=== PATIENT | female | born 1965 | race American Indian/Alaskan Native ===

== ENCOUNTER 2017-03-30 18:06 | Emergency (ER) | payer OTHER ==
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
[2017-03-30] MEDS ORDERED: MVI, Adult with Vitamin K 10 ML SDV IV ONE (18:35)
[2017-03-30] MEDS ORDERED: Lactated Ringers 1,000 ML IV ONE (18:35)
[2017-03-30] MEDS ORDERED: Thiamine 100 MG in Sodium Chloride 0.9% 100 ML IV ONE (18:35)
[2017-03-30] MEDS ORDERED: MVI, Adult with Vitamin K 10 ML, Thiamine 100 MG, Folic Acid 1 MG in Lactated Ringers 1... IV ONE ×4 (18:56)
[2017-03-30 20:39] LABS: CHLORIDE,CL 95 mmol/L (101-111); SODIUM,NA 135 mmol/L (135-145)
[2017-03-30] MEDS ORDERED: Ondansetron 4 MG/2 ML SDV IV ONE (20:45)
[2017-03-30 22:01] VITALS: BP 135/90
[2017-03-31] MEDS ORDERED: Folic Acid 50 MG/10 ML MDV IV ONE (18:37)
== END 2017-03-30 21:52 | disposition home or self-care (01) ==
LOC: DL.ED 18:06
DX: F10.129 Alcohol abuse with intoxication, unspecified (principal); Y90.8 Blood alcohol level of 240 mg/100 ml or more; F17.210 Nicotine dependence, cigarettes, uncomplicated; E11.9 Type 2 diabetes mellitus without complications; Z89.412 Acquired absence of left great toe; Z88.8 Allergy status to other drugs, medicaments and biological substances; Z88.1 Allergy status to other antibiotic agents; V89.2XXA Person injured in unspecified motor-vehicle accident, traffic, initial encounter
CPT/HCPCS: 36415; 80053; 80305; 81025; 82962; 85025; 96365; 96366; 96375; 99284; G0480; J2405; J3411; J7120; J3490

== ENCOUNTER 2020-07-31 17:00 | Emergency (ER) | payer OTHER ==
--- NOTE | 2020-07-31 17:25 | CT ---
PROCEDURE INFORMATION: Exam: CT Head Without Contrast Exam date and time: 07/31/2020 5:13 PM Age: 55 years old Clinical indication: Other: Left sided weakness; Additional info: Numbness and tingling left side TECHNIQUE: Imaging protocol: Computed tomography of the head without contrast. Radiation optimization: All CT scans at this facility use at least one of these dose optimization techniques: automated exposure control; mA and/or kV adjustment per patient size (includes targeted exams where dose is matched to clinical indication); or iterative reconstruction. Other technique: STROKE PROTOCOL was implemented. COMPARISON: No relevant prior studies available. FINDINGS: Brain: Old infarct right basal ganglia and anterior limb right internal capsule. Diffuse cerebellar atrophy. Cerebral ventricles: No ventriculomegaly. Bones/joints: Unremarkable. No acute fracture. Paranasal sinuses: Visualized sinuses are unremarkable. No fluid levels. Mastoid air cells: Visualized mastoid air cells are well aerated. Soft tissues: Unremarkable. IMPRESSION: 1. 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 2. Diffuse cerebellar atrophy 3. No acute intracranial findings. ASSESSMENT: ASPECTS ([place] Stroke Program Early CT Score) is 10.
[2020-07-31 17:27] VITALS: BP 213/111; PULSE 76
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
[2020-07-31 18:52] LABS: ANION GAP 11.4 mEq/L (7-13)
== END 2020-07-31 20:15 | disposition home or self-care (01) ==
LOC: DL.ED 17:00
DX: E11.40 Type 2 diabetes mellitus with diabetic neuropathy, unspecified (principal); Z87.891 Personal history of nicotine dependence; Z88.1 Allergy status to other antibiotic agents; Z79.4 Long term (current) use of insulin
CPT/HCPCS: 36415; 70450; 80053; 81001; 82140; 82150; 83690; 85025; 99283; 99284-25

== ENCOUNTER 2020-12-23 16:41 | Emergency (ER) | payer OTHER ==
[2020-12-23 17:32] LABS: PTT,PARTIAL THROMBOPLSTIN TIME 24.5 SEC (22.0-34.0)
[2020-12-23 17:35] LABS: ANION GAP 16.9 mEq/L (7-13); CHLORIDE,CL 107 mmol/L (98-107); SODIUM,NA 139 mmol/L (136-145)
--- NOTE | 2020-12-23 17:36 | CT ---
PROCEDURE INFORMATION: Exam: CT Head Without Contrast Exam date and time: 12/23/2020 5:25 PM Age: 55 years old Clinical indication: Other: Stroke code: Right face droop, RT sided weakness TECHNIQUE: Imaging protocol: Computed tomography of the head without contrast. Radiation optimization: All CT scans at this facility use at least one of these dose optimization techniques: automated exposure control; mA and/or kV adjustment per patient size (includes targeted exams where dose is matched to clinical indication); or iterative reconstruction. Other technique: STROKE PROTOCOL was implemented. COMPARISON: CT Head wo Cont 07/31/2020 5:13 PM FINDINGS: Brain: Lucency in left cerebellar hemisphere and in left occipital lobe, consistent with chronic infarcts. Chronic bilateral basal ganglia infarcts. Cerebral ventricles: No ventriculomegaly. Bones/joints: On series 2, image 16, there is a 8 mm in diameter lucency of the left basal ganglion not present previously which is most consistent with an additional lacunar infarct having taken place in the interval since July 31, 2020. Paranasal sinuses: Visualized sinuses are unremarkable. No fluid levels. Mastoid air cells: Visualized mastoid air cells are well aerated. Soft tissues: Unremarkable. IMPRESSION: 1. Negative head CT. 2. Lucency in left cerebellar hemisphere and in left occipital lobe, consistent with chronic infarcts. 3. Chronic bilateral basal ganglia infarcts. 4. Additional left basal ganglion infarct which appears to be not acute, which was not present on July 31, 2020. 5. [place] Stroke Program Early CT Score (ASPECTS) = 10.
[2020-12-23] MEDS ORDERED: Sodium Chloride 0.9% 1,000 ML IV ONE (17:43)
--- NOTE | 2020-12-23 17:46 | CR ---
PROCEDURE INFORMATION: Exam: XR Chest Exam date and time: 12/23/2020 5:31 PM Age: 55 years old Clinical indication: Other: ? CVA possible aspiration; Additional info: CVA, poss. Aspiration TECHNIQUE: Imaging protocol: XR of the chest. Views: 1 view. COMPARISON: No relevant prior studies available. FINDINGS: Lungs: No suspicious pulmonary nodules or areas of lung consolidation. Pleural spaces: Unremarkable. No pleural effusion. No pneumothorax. Heart/Mediastinum: Unremarkable. No cardiomegaly. Bones/joints: Age appropriate. IMPRESSION: No active disease of the chest.
[2020-12-23 18:06] VITALS: BP 201/97; PULSE 80
--- NOTE | 2020-12-23 18:09 | EDM.PDOC ---
"Scribed by Macy Anna 12/23/20 1738 for Kaylin Mohr MD ED HPI GENERAL MEDICAL PROBLEM - General Chief Complaint: Neuro Symptoms/Deficits Stated Complaint: STROKE LIKE SYMPTOMS Time Seen by Provider: 12/23/20 16:53 Source of Information: Reports: Patient, RN, RN Notes Reviewed History Limitations: Reports: No Limitations - History of Present Illness INITIAL COMMENTS - FREE TEXT/NARRATIVE: Patient presents to ED by POV stating that her last known well was at 2200HRS last evening. Patient woke with right sided facial droop, slurred speech, right sided upper and lower extremity weakness. For some unknown reason, she waited until this evening to come to the ER for evaluation. She denies headache or visual changes. Speech is very slurred and difficult to understand. She does indicate that she has no prior history of CVA. Onset: Today Duration: Constant Severity: Severe Improves with: Reports: None Worsens with: Reports: None Associated Symptoms: Reports: No Other Symptoms - Related Data Allergies Allergy/AdvReac Type Severity Reaction Status Date / Time ceftriaxone sodium Allergy Shaking Verified 07/31/20 17:45 [From Rocephin] Home Meds: Home Meds Aspirin [Aspirin EC] 81 mg PO DAILY 07/31/20 [History] Chlorthalidone 25 mg PO DAILY 07/31/20 [History] Insulin Detemir [Levemir] 10 units SQ BEDTIME 07/31/20 [History] Mupirocin Oint [Bactroban Oint] 22 gm TP TID 07/31/20 [History] Past Medical History - Past Health History Medical/Surgical History: Denies Medical/Surgical History HEENT History: Reports: Impaired Vision, Other (See Below) Other HEENT History: wears glasses, rhinitis Cardiovascular History: Reports: Hypertension Respiratory History: Reports: None Gastrointestinal History: Reports: Other (See Below) Other Gastrointestinal History: nephortic syndrome Genitourinary History: Reports: None 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 SUPERVISOR History: Reports: None Musculoskeletal History: Reports: Fracture Neurological History: Reports: None Psychiatric History: Reports: None Endocrine/Metabolic History: Reports: Diabetes, Type II, Hypothyroidism Hematologic History: Reports: None Immunologic History: Reports: None Oncologic (Cancer) History: Reports: None Dermatologic History: Reports: None - Infectious Disease History Infectious Disease History: Reports: Chicken Pox - Past Surgical History Head Surgeries/Procedures: Reports: None Female Surgical History: Reports: Section Other Musculoskeletal Surgeries/Procedures:: 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 ED EXAM, NEURO - Physical Exam Exam: See Below Exam Limited By: Physical Impairment General Appearance: Alert, WD/WN, No Apparent Distress Eye Exam: Right Eye: Other (Right eyelid weakness), Bilateral Eye: EOMI, PERRL Ears: Normal External Exam, Normal Canal, Hearing Grossly Normal, Normal TMs Nose: Normal Inspection, Normal Mucosa, No Blood Throat/Mouth: Normal Lips, Normal Voice, No Airway Compromise Head Exam: Atraumatic, Normocephalic Neck: Normal Inspection, Supple, Non-Tender, Full Range of Motion. No: Carotid Bruit Respiratory/Chest: No Respiratory Distress, Lungs Clear, No Accessory Muscle Use, Chest Non-Tender, Decreased Breath Sounds Cardiovascular: Regular Rate, Rhythm, No Edema, No JVD GI/Abdominal: Normal Bowel Sounds, Soft, Non-Tender, No Distention Neurological: Alert, Normal Dorsiflexion, Normal Plantar Flexion, Oriented x 3, Abnormal Motor (NIH score 7-8 by my exam. NIH reports as 10 by RN.), Difficulty Walking, Other (Slurred speech with dysarthria, right facial droop involving forehead, tongue weakness to right. Right upper and lower extremity weakness with mild drift. 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 - Orders/Labs/Meds Orders: Active Orders 24 hr Category Date Time Status Blood Glucose Check, Bedside [RC] ONETIME Care 12/23/20 16:53 Active EKG 12 Lead [EKG Documentation Completion] [RC] STAT Care 12/23/20 16:58 Active NIH Stroke Scale [RC] ASDIRECTED Care 12/23/20 16:54 Active AMMONIA VENOUS [CHEM] Stat Lab 12/23/20 17:44 Ordered DRUG SCREEN URINE BIORAD [URCHEM] Stat Lab 12/23/20 16:57 Ordered UA RFX LUCIEN AND CULT IF INDIC [URIN] Stat Lab 12/23/20 16:59 Ordered Sodium Chloride 0.9% [Normal Saline] 1,000 ml Med 12/23/20 17:43 Active IV .BOLUS Medication Orders Sodium Chloride (Normal Saline) 1,000 mls @ 999 mls/hr IV .BOLUS ONE Stop: 12/23/20 18:43 Labs: Laboratory Tests 12/23/20 12/23/20 12/23/20 Range/Units 17:08 17:08 17:08 WBC 9.6 (5.0-10.0) 10^3/uL RBC 3.55 L (4.2-5.4) 10^6/uL Hgb 10.6 L (12.0-16.0) g/dL Hct 33.2 L (37.0-47.0) % MCV 93.5 (80-100) fL MCH 29.9 (27.0-34.0) pg MCHC 31.9 L (33.0-35.0) g/dL Plt Count 342 (150-450) 10^3/uL Neut % (Auto) 72.0 (42.2-75.2) % Lymph % (Auto) 20.6 (20.5-50.1) % [place] % (Auto) 4.9 (2-8) % Eos % (Auto) 2.1 (1.0-3.0) % Baso % (Auto) 0.4 (0.0-1.0) % PT 9.5 (9.0-12.0) SEC INR 0.9 (0.9-1.2) APTT 24.5 (22.0-34.0) SEC Sodium 139 (136-145) mmol/L Potassium 4.9 (3.5-5.1) mmol/L Chloride 107 (98-107) mmol/L Carbon Dioxide 20 L (21-32) mmol/L Anion Gap 16.9 H (7-13) mEq/L BUN 55 H (7-18) mg/dL Creatinine 4.04 H (0.55-1.02) mg/dL Est Cr Clr Drug Dosing TNP Estimated GFR (MDRD) 12 BUN/Creatinine Ratio 13.6 (No establ ref range) Glucose 130 H (70-99) mg/dL Calcium 8.1 L (8.5-10.1) mg/dL Total Bilirubin 0.2 (0.2-1.0) mg/dL AST 14 L (15-37) U/L ALT 21 (14-59) U/L Alkaline Phosphatase 104 (46-116) U/L Troponin I < 0.017 (0.000-0.056) ng/mL C-Reactive Protein < 0.2 (0.0-0.9) mg/dL Total Protein 6.4 (6.4-8.2) g/dL Albumin 2.1 L (3.4-5.0) g/dL Globulin 4.3 Albumin/Globulin Ratio 0.49 Ethyl Alcohol < 3 (0) mg/dL Meds: Medications Generic Name Dose Route Start Last Admin Trade Name Freq PRN Reason Stop Dose Admin Sodium Chloride 1,000 mls @ 999 mls/hr 12/23/20 17:43 Normal Saline IV 12/23/20 18:43 .BOLUS ONE - Radiology Interpretation Free Text/Narrative:: [facility] Final Radiology Report Call: [phone] assistance Online chat: [email or web address] Name: AWAIS DUMONT Age: 55Years F Date: 12/23/2020 SSN: -- : [id number] Study: CT HEAD WO CONT Requesting Physician: KAYLIN MOHR Images: 179 Addl Studies: Provided Clinical History: STROKE CODE: right face droop, Rt sided weakness Contrast: Without Contrast Medium: Contrast Amount: Contrast Method: Page 1 of 2 PROCEDURE INFORMATION: Exam: CT Head Without Contrast Exam date and time: 12/23/2020 5:25 PM Age: 55 years old Clinical indication: Other: Stroke code: Right face droop, RT sided weakness TECHNIQUE: Imaging protocol: Computed tomography of the head without contrast. Radiation optimization: All CT scans at this facility use at least one of these dose optimization techniques: automated exposure control; mA and/or kV adjustment per patient size (includes targeted exams where dose is matched to clinical indication); or iterative reconstruction. Other technique: STROKE PROTOCOL was implemented. COMPARISON: CT Head wo Cont 07/31/2020 5:13 PM FINDINGS: Brain: Lucency in left cerebellar hemisphere and in left occipital lobe, consistent with chronic infarcts. Chronic bilateral basal ganglia infarcts. Cerebral ventricles: No ventriculomegaly. Bones/joints: On series 2, image 16, there is a 8 mm in diameter lucency of the left basal ganglion not present previously which is most consistent with an additional lacunar infarct having taken place in the interval since July 31, 2020. Paranasal sinuses: Visualized sinuses are unremarkable. No fluid levels. Mastoid air cells: Visualized mastoid air cells are well aerated. Soft tissues: Unremarkable. IMPRESSION: 1. Negative head CT. 2. Lucency in left cerebellar hemisphere and in left occipital lobe, consistent with chronic infarcts. 3. Chronic bilateral basal ganglia infarcts. AWAIS DUMONT | Final Radiology Report CONFIDENTIALITY STATEMENT This report is intended only for use by the referring physician, and only in accordance with law. If you received this in error, call [phone]. Page 2 of 2 4. Additional left basal ganglion infarct which appears to be not acute, which was not present on July 31, 2020. 5. [facility] Stroke Program Early CT Score (ASPECTS) = 10. Thank you for allowing us to participate in the care of your patient. Dictated and Authenticated by: Huang Davidson MD 12/23/2020 5:35 PM Central Time ([place] & [place]) [facility] Final Radiology Report Call: [phone] assistance Online chat: [email or web address] Name: AWAIS DUMONT Age: 55Years F Date: 12/23/2020 SSN: -- : [id number] Study: CR CHEST 1V FRONTAL Requesting Physician: KAYLIN MOHR Images: 1 Addl Studies: Provided Clinical History: CVA, poss. aspiration Contrast: Contrast Medium: Contrast Amount: Contrast Method: CONFIDENTIALITY STATEMENT This report is intended only for use by the referring physician, and only in accordance with law. If you received this in error, call [phone]. Page 1 of 1 PROCEDURE INFORMATION: Exam: XR Chest Exam date and time: 12/23/2020 5:31 PM Age: 55 years old Clinical indication: Other: ? CVA possible aspiration; Additional info: CVA, poss. Aspiration TECHNIQUE: Imaging protocol: XR of the chest. Views: 1 view. COMPARISON: No relevant prior studies available. FINDINGS: Lungs: No suspicious pulmonary nodules or areas of lung consolidation. Pleural spaces: Unremarkable. No pleural effusion. No pneumothorax. Heart/Mediastinum: Unremarkable. No cardiomegaly. Bones/joints: Age appropriate. IMPRESSION: No active disease of the chest. Thank you for allowing us to participate in the care of your patient. Dictated and Authenticated by: Huang Davidson MD 12/23/2020 5:46 PM Central Time ([place] & [place]) - Re-Assessments/Exams Free Text/Narrative Re-Assessment/Exam: 12/23/20 18:[address] Martinez (neurology) via [facility] Call. Dr. Martinez advised the pt may be best cared for a [facility] where interventional neurology is available as pt is well outside of thrombolytic window. Departure - Departure Time of Disposition: 17:59 Disposition: DC/Tfer to Acute Hospital 02 Condition: Serious Clinical Impression: Acute CVA (cerebrovascular accident), Acute kidney injury - Discharge Information *PRESCRIPTION DRUG MONITORING PROGRAM REVIEWED*: Not Applicable *COPY OF PRESCRIPTION DRUG MONITORING REPORT IN PATIENT ANTHONY: Not Applicable Forms: ED Department Discharge, Interfacility Transfer EMTALA - My Orders Last 24 Hours: My Active Orders 12/23/20 16:53 Blood Glucose Check, Bedside [RC] ONETIME 12/23/20 16:54 NIH Stroke Scale [RC] ASDIRECTED 12/23/20 16:57 DRUG SCREEN URINE BIORAD [URCHEM] Stat 12/23/20 16:58 EKG 12 Lead [EKG Documentation Completion] [RC] STAT 12/23/20 16:59 UA RFX LUCIEN AND CULT IF INDIC [URIN] Stat 12/23/20 17:43 Sodium Chloride 0.9% [Normal Saline] 1,000 ml IV .BOLUS 12/23/20 17:44 AMMONIA VENOUS [CHEM] Stat - Assessment/Plan Last 24 Hours: My Active Orders 12/23/20 16:53 Blood Glucose Check, Bedside [] ONETIME 12/23/20 16:54 NIH Stroke Scale [] ASDIRECTED 12/23/20 16:57 DRUG SCREEN URINE BIORAD [URCHEM] Stat 12/23/20 16:58 EKG 12 Lead [EKG Documentation Completion] [RC] STAT 12/23/20 16:59 UA RFX LUCIEN AND CULT IF INDIC [URIN] Stat 12/23/20 17:43 Sodium Chloride 0.9% [Normal Saline] 1,000 ml IV .BOLUS 12/23/20 17:44 AMMONIA VENOUS [CHEM] Stat I have read and agree with the documentation that has been completed regarding this visit. By signing this record, I attest that the documentation was completed in my physical presence and is an accurate record of the encounter."
== END 2020-12-23 18:27 ==
LOC: DL.ED 16:41
DX: I63.9 Cerebral infarction, unspecified (principal); N17.9 Acute kidney failure, unspecified; I10 Essential (primary) hypertension; E11.9 Type 2 diabetes mellitus without complications; E03.9 Hypothyroidism, unspecified; Z88.1 Allergy status to other antibiotic agents; Z79.82 Long term (current) use of aspirin; Z79.4 Long term (current) use of insulin
CPT/HCPCS: 36415; 70450; 71045; 80053; 80307; 82140; 82962; 84484; 85025; 85610; 85730; 86140; 93005; 93010; 99285; J7030

== ENCOUNTER 2022-08-31 12:01 | Inpatient (IN) | payer BC ==
[2022-08-31 12:24] LABS: ANION GAP 27.6 mEq/L (7-13)
[2022-08-31] MEDS ORDERED: Pantoprazole 40 MG Vial IVPUSH ONE (16:21)
[2022-08-31] MEDS: Pantoprazole 40 MG in Sodium Chloride 0.9% 100 ML IV SCH ×2 (17:25→22:20)
[2022-08-31] MEDS ORDERED: Sodium Bicarbonate 100 MEQ in Dextrose 5% in Water 1,000 ML IV ONE ×2 (19:25)
[2022-08-31] MEDS ORDERED: DESMOPRESSIN IV ONE (19:26)
[2022-08-31] MEDS ORDERED: SODIUM CHLORIDE 0.9% IV ONE (19:26)
[2022-08-31] MEDS ORDERED: Lactated Ringers 1,000 ML IV SCH (19:30)
[2022-08-31] MEDS ORDERED: Water For Injection, Sterile 10 ML ONE (20:04)
[2022-08-31] MEDS ORDERED: Magnesium Hydroxide 400 MG/5 ML Susp 30 ML Cup PO PRN (20:35)
[2022-08-31] MEDS ORDERED: Acetaminophen 325 MG Tab PO PRN (20:35)
[2022-08-31] MEDS ORDERED: Albuterol/Ipratropium 3.0-0.5 MG/3 ML Neb Soln NEB PRN (20:35)
[2022-08-31] MEDS ORDERED: Ondansetron 4 MG/2 ML SDV IVPUSH PRN (20:35)
[2022-08-31] MEDS ORDERED: HYDROmorphone 0.5 MG/0.5 ML Syringe IVPUSH PRN (20:35)
[2022-08-31] MEDS ORDERED: Polyethylene Glycol 3350 Powder 17 GM Packet PO PRN (20:35)
[2022-08-31] MEDS ORDERED: Sodium Chloride 0.9% 10 ML Syringe FLUSH PRN (20:51)
[2022-08-31] MEDS ORDERED: Metoprolol Tartrate 5 MG/5 ML SDV IVPUSH PRN (21:33)
[2022-08-31] MEDS ORDERED: hydrALAZINE 20 MG/ML SDV IVPUSH PRN (21:33)
[2022-08-31] MEDS ORDERED: atorvaSTATin 20 MG Tab PO SCH (21:45)
[2022-08-31] MEDS ORDERED: Sucralfate Suspension 1 GM/10 ML Cup PO ONE (22:08)
[2022-08-31] MEDS: Sodium Chloride 0.9% 10 ML Syringe FLUSH SCH (22:21)
[2022-09-01] MEDS ORDERED: Sucralfate Suspension 1 GM/10 ML Cup PO SCH (07:00)
[2022-09-01] MEDS: Pantoprazole 40 MG in Sodium Chloride 0.9% 100 ML IV SCH (07:35)
[2022-09-01] MEDS ORDERED: NITAZOXANIDE 500 MG PO SCH (08:00)
[2022-09-01] MEDS ORDERED: Non-Formulary Medication 1 Each (Sevelamer Carbonate [Renvela] 800 MG Tablet) PO SCH (08:00)
[2022-09-01] MEDS: Sodium Chloride 0.9% 10 ML Syringe FLUSH SCH (08:15)
[2022-09-01] MEDS ORDERED: SODIUM CHLORIDE 0.9% IV ONE (09:00)
[2022-09-01] MEDS ORDERED: DESMOPRESSIN IV ONE (09:00)
[2022-09-01] MEDS ORDERED: amLODIPine 5 MG Tab PO SCH (09:00)
== END 2022-09-01 09:04 | DRG 469 ==
LOC: DL.ED 12:01 → DL.MS 17:51 → DL.ED 18:19
PROVIDERS: ADMIT Internal Medicine; ATTEND Internal Medicine
PROC: 30233N1 Transfusion of Nonautologous Red Blood Cells into Peripheral Vein, Percutaneous Approach (ICD-10-PCS; principal; 2022-08-31)
DX: D59.30 Hemolytic-uremic syndrome, unspecified (principal); G93.49 Other encephalopathy; E11.65 Type 2 diabetes mellitus with hyperglycemia; E87.5 Hyperkalemia; E87.20 Acidosis, unspecified; N18.6 End stage renal disease; E11.22 Type 2 diabetes mellitus with diabetic chronic kidney disease; E88.09 Other disorders of plasma-protein metabolism, not elsewhere classified; H54.7 Unspecified visual loss; E03.9 Hypothyroidism, unspecified; I12.0 Hypertensive chronic kidney disease with stage 5 chronic kidney disease or end stage renal disease; Z99.2 Dependence on renal dialysis; Z79.82 Long term (current) use of aspirin; Z79.899 Other long term (current) drug therapy; Z88.1 Allergy status to other antibiotic agents
CPT/HCPCS: 36415; 36430; 80053; 80069; 82272; 82607; 82746; 83540; 83550; 83735; 84484; 85014; 85018; 85025; 86850; 86900; 86901; 86920; 86922; 93005; 96365; 96376; 99285-25; A9270-GY; C9113; J1410; J2597; J3490; J7060; J7120; P9016

== ENCOUNTER 2022-11-12 13:51 | Emergency (ER) | payer BC ==
[2022-11-12 14:49] LABS: ANION GAP 9.8 mEq/L (7-13); CHLORIDE,CL 102 mmol/L (98-107); SODIUM,NA 141 mmol/L (136-145)
[2022-11-12 14:51] LABS: ESTIMATED GFR 19 mL/min (>=60)
[2022-11-12] MEDS ORDERED: Tranexamic Acid 1,000 MG in Sodium Chloride 0.9% 100 ML IV ONE (14:59)
[2022-11-12] MEDS ORDERED: Pantoprazole 40 MG Vial IVPUSH ONE (15:00)
[2022-11-12] MEDS ORDERED: Pantoprazole 40 MG in Sodium Chloride 0.9% 100 ML IV SCH (15:00)
[2022-11-12] MEDS ORDERED: Octreotide 100 MCG/ML SDV IVPUSH ONE (15:01)
[2022-11-12] MEDS ORDERED: Octreotide 100 MCG in Sodium Chloride 0.9% 100 ML IV ONE (15:01)
[2022-11-12] MEDS: Sodium Chloride 0.9% 10 ML Syringe FLUSH PRN ×2 (15:09→15:29)
== END 2022-11-12 16:30 ==
LOC: DL.ED 13:51
DX: K92.2 Gastrointestinal hemorrhage, unspecified (principal); I10 Essential (primary) hypertension; E11.9 Type 2 diabetes mellitus without complications; Z88.1 Allergy status to other antibiotic agents; Z79.82 Long term (current) use of aspirin; Z79.02 Long term (current) use of antithrombotics/antiplatelets; Z79.899 Other long term (current) drug therapy
CPT/HCPCS: 36415; 36430; 80053; 82272; 83605; 85025; 85610; 86140; 86850; 86900; 86901; 86920; 86922; 93005; 93010; 96365; 96368; 96375; 96376; 99284; 99285; C9113; J2354; J3490; P9016

== ENCOUNTER 2022-11-24 11:09 | Emergency (ER) | payer SELFPAY ==
[2022-11-24] MEDS: Sodium Chloride 0.9% 10 ML Syringe FLUSH PRN (12:45)
[2022-11-24 13:19] LABS: CHLORIDE,CL 101 mmol/L (98-107); SODIUM,NA 136 mmol/L (136-145)
[2022-11-24 13:26] LABS: ANION GAP 19.9 mEq/L (7-13)
[2022-11-24 13:27] LABS: ESTIMATED GFR 4 mL/min (>=60)
== END 2022-11-24 14:10 | disposition home or self-care (01) ==
LOC: DL.ED 11:09
DX: Z91.15 Patient's noncompliance with renal dialysis (principal); I12.9 Hypertensive chronic kidney disease with stage 1 through stage 4 chronic kidney disease, or unspecified chronic kidney disease; E11.22 Type 2 diabetes mellitus with diabetic chronic kidney disease; N18.9 Chronic kidney disease, unspecified; Z99.2 Dependence on renal dialysis; Z88.1 Allergy status to other antibiotic agents; Z79.02 Long term (current) use of antithrombotics/antiplatelets; Z79.82 Long term (current) use of aspirin; Z79.899 Other long term (current) drug therapy; Z86.73 Personal history of transient ischemic attack (TIA), and cerebral infarction without residual deficits
CPT/HCPCS: 36415; 80053; 80307; 83605; 83735; 84145; 85025; 86140; 93005; 93010; 99284; 99285; J3490

== ENCOUNTER 2024-08-22 11:56 | Emergency (ER) | payer BC ==
[2024-08-22 12:28] LABS: BASOPHILS PERCENT AUTO 0.6 % (0.0-1.0); EOSINOPHILS PERCENT AUTO 1.5 % (1.0-3.0); HEMATOCRIT 35.8 % (37.0-47.0); HEMOGLOBIN 11.2 g/dL (12.0-16.0); LYMPHOCYTES PERCENT AUTO 12.9 % (20.5-50.1); MEAN CORPUSCULAR HEMOGLOBIN 32.5 pg (27.0-34.0); MEAN CORPUSCULAR HGB CONC 31.3 g/dL (33.0-35.0); MEAN CORPUSCULAR VOLUME 103.8 fL (80-100); MONOCYTES PERCENT AUTO 5.9 % (2-8); NEUTROPHILS PERCENT AUTO 79.1 % (42.2-75.2); PLATELET COUNT,PLT 147 10^3/uL (150-450); RED BLOOD CELL COUNT 3.45 10^6/uL (4.2-5.4); WHITE BLOOD CELL COUNT,WBC 5.3 10^3/uL (5.0-10.0)
[2024-08-22 12:49] LABS: A/G RATIO 0.9; ALANINE AMINOTRANSFERASE,ALT 20 U/L (14-59); ALBUMIN 3.7 g/dL (3.4-5.0); ALKALINE PHOSPHATASE 134 U/L (46-116); ANION GAP 25.8 mEq/L (7-13); ASPARTATE AMNIOTRANSFERASE,AST 15 U/L (15-37); BILIRUBIN TOTAL 0.7 mg/dL (0.2-1.0); BLOOD UREA NITROGEN,BUN 102 mg/dL (7-18); BUN/CREATININE RATIO 7.8 (No establ ref range); CALCIUM 8.7 mg/dL (8.5-10.1); CARBON DIOXIDE,CO2 23 mmol/L (21-32); CHLORIDE,CL 97 mmol/L (98-107); GLUCOSE RANDOM 85 mg/dL (70-99); MAGNESIUM 2.9 mg/dL (1.8-2.4); POTASSIUM,K 5.8 mmol/L (3.5-5.1); SODIUM,NA 140 mmol/L (136-145)
[2024-08-22 12:55] LABS: CREATININE 13.06 mg/dL (0.55-1.02); ESTIMATED GFR 3 mL/min (>=60)
== END 2024-08-22 13:07 | disposition home or self-care (01) ==
LOC: DL.ED 11:56
DX: B34.9 Viral infection, unspecified (principal); E83.41 Hypermagnesemia; E87.5 Hyperkalemia; I12.0 Hypertensive chronic kidney disease with stage 5 chronic kidney disease or end stage renal disease; N18.6 End stage renal disease; E78.00 Pure hypercholesterolemia, unspecified; E11.22 Type 2 diabetes mellitus with diabetic chronic kidney disease; Z99.2 Dependence on renal dialysis; Z79.899 Other long term (current) drug therapy; Z79.82 Long term (current) use of aspirin; Z91.040 Latex allergy status; Z88.1 Allergy status to other antibiotic agents
CPT/HCPCS: 36415; 80053; 83735; 83880; 85025; 87428-QW; 99284

== ENCOUNTER 2024-08-23 23:46 | Emergency (ER) | payer BC ==
[~2024-08-23 23:46] MED LIST: Sodium Chloride 0.9% 10 ML Syringe FLUSH PRN
[2024-08-24 00:05] LABS: BASOPHILS PERCENT AUTO 0.3 % (0.0-1.0); EOSINOPHILS PERCENT AUTO 4.3 % (1.0-3.0); HEMOGLOBIN 11.1 g/dL (12.0-16.0); LYMPHOCYTES PERCENT AUTO 15.5 % (20.5-50.1); MEAN CORPUSCULAR HGB CONC 31.7 g/dL (33.0-35.0); MEAN CORPUSCULAR VOLUME 104.2 fL (80-100); MONOCYTES PERCENT AUTO 8.2 % (2-8); NEUTROPHILS PERCENT AUTO 71.7 % (42.2-75.2); PLATELET COUNT,PLT 138 10^3/uL (150-450); RED BLOOD CELL COUNT 3.36 10^6/uL (4.2-5.4); WHITE BLOOD CELL COUNT,WBC 5.8 10^3/uL (5.0-10.0)
[2024-08-24 00:28] LABS: A/G RATIO 0.8; ALANINE AMINOTRANSFERASE,ALT 26 U/L (14-59); ALBUMIN 3.5 g/dL (3.4-5.0); ALKALINE PHOSPHATASE 181 U/L (46-116); ANION GAP 18.5 mEq/L (7-13); ASPARTATE AMNIOTRANSFERASE,AST 20 U/L (15-37); BILIRUBIN TOTAL 0.5 mg/dL (0.2-1.0); BLOOD UREA NITROGEN,BUN 77 mg/dL (7-18); BUN/CREATININE RATIO 8.2 (No establ ref range); CALCIUM 8.5 mg/dL (8.5-10.1); CARBON DIOXIDE,CO2 27 mmol/L (21-32); CHLORIDE,CL 99 mmol/L (98-107); CREATININE 9.38 mg/dL (0.55-1.02); GLUCOSE RANDOM 137 mg/dL (70-99); POTASSIUM,K 4.5 mmol/L (3.5-5.1); PROTEIN TOTAL,TP 7.8 g/dL (6.4-8.2); SODIUM,NA 140 mmol/L (136-145)
[2024-08-24 00:29] LABS: INR 1.2 (0.9-1.2); PROTHROMBIN TIME 12.3 SEC (9.0-12.0); PTT,PARTIAL THROMBOPLSTIN TIME 24.5 SEC (22.0-34.0)
[2024-08-24 00:31] LABS: ESTIMATED GFR 4 mL/min (>=60)
== END 2024-08-24 10:15 | disposition home or self-care (01) ==
LOC: DL.ED 23:46
DX: I16.0 Hypertensive urgency (principal); R55 Syncope and collapse; E78.00 Pure hypercholesterolemia, unspecified; E11.9 Type 2 diabetes mellitus without complications; Z86.73 Personal history of transient ischemic attack (TIA), and cerebral infarction without residual deficits; Z88.8 Allergy status to other drugs, medicaments and biological substances; Z91.040 Latex allergy status; Z79.82 Long term (current) use of aspirin; Z79.899 Other long term (current) drug therapy
CPT/HCPCS: 36415; 70450; 80053; 82947; 84484; 85025; 85610; 85730; 93005; 99285

== ENCOUNTER 2024-08-24 15:33 | Emergency (ER) | payer BC | END 2024-08-25 10:25 | disposition home or self-care (01) | LOC: DL.ED 15:33 | DX: E11.36 Type 2 diabetes mellitus with diabetic cataract (principal); I10 Essential (primary) hypertension; E78.00 Pure hypercholesterolemia, unspecified; E03.9 Hypothyroidism, unspecified; Z86.73 Personal history of transient ischemic attack (TIA), and cerebral infarction without residual deficits; Z79.82 Long term (current) use of aspirin; Z79.02 Long term (current) use of antithrombotics/antiplatelets; Z88.1 Allergy status to other antibiotic agents; Z91.040 Latex allergy status | CPT/HCPCS: 99283 ==

== ENCOUNTER 2024-10-29 17:30 | Emergency (ER) | payer SELFPAY ==
[2024-10-29 18:13] LABS: BASOPHILS PERCENT AUTO 0.6 % (0.0-1.0); EOSINOPHILS PERCENT AUTO 2.8 % (1.0-3.0); HEMATOCRIT 33.6 % (37.0-47.0); HEMOGLOBIN 10.6 g/dL (12.0-16.0); LYMPHOCYTES PERCENT AUTO 17.1 % (20.5-50.1); MEAN CORPUSCULAR HEMOGLOBIN 32.4 pg (27.0-34.0); MEAN CORPUSCULAR HGB CONC 31.5 g/dL (33.0-35.0); MEAN CORPUSCULAR VOLUME 102.8 fL (80-100); MONOCYTES PERCENT AUTO 7.8 % (2-8); NEUTROPHILS PERCENT AUTO 71.7 % (42.2-75.2); PLATELET COUNT,PLT 160 10^3/uL (150-450); RED BLOOD CELL COUNT 3.27 10^6/uL (4.2-5.4)
[2024-10-29 18:33] LABS: A/G RATIO 0.7; ALANINE AMINOTRANSFERASE,ALT 22 U/L (14-59); ALBUMIN 3.5 g/dL (3.4-5.0); ALKALINE PHOSPHATASE 149 U/L (46-116); ANION GAP 7.1 mEq/L (7-13); ASPARTATE AMNIOTRANSFERASE,AST 22 U/L (15-37); BILIRUBIN TOTAL 0.6 mg/dL (0.2-1.0); BLOOD UREA NITROGEN,BUN 21 mg/dL (7-18); BUN/CREATININE RATIO 6.6 (No establ ref range); CALCIUM 8.9 mg/dL (8.5-10.1); CARBON DIOXIDE,CO2 36 mmol/L (21-32); CHLORIDE,CL 98 mmol/L (98-107); CREATININE 3.17 mg/dL (0.55-1.02); GLUCOSE RANDOM 129 mg/dL (70-99); POTASSIUM,K 4.1 mmol/L (3.5-5.1); PROTEIN TOTAL,TP 8.3 g/dL (6.4-8.2); SODIUM,NA 137 mmol/L (136-145)
[2024-10-29 18:36] LABS: ESTIMATED GFR 16 mL/min (>=60)
[2024-10-29] MEDS: Diphtheria,Pertussis(Acell),Tetanus Vaccine 0.5 ML Syringe IM ONE (19:15)
[2024-10-29] MEDS: Bacitracin Oint 1 GM U/D Packet TOP ONE (19:15)
[2024-10-29] MEDS: Acetaminophen 325 MG Tab PO ONE (21:30)
[2024-10-30] MEDS: Bacitracin Oint 1 GM U/D Packet TOP ONE (09:00)
== END 2024-10-30 14:11 | disposition home or self-care (01) ==
LOC: DL.ED 17:30
DX: S91.302A Unspecified open wound, left foot, initial encounter (principal); I12.0 Hypertensive chronic kidney disease with stage 5 chronic kidney disease or end stage renal disease; N18.6 End stage renal disease; D63.1 Anemia in chronic kidney disease; E11.22 Type 2 diabetes mellitus with diabetic chronic kidney disease; E78.00 Pure hypercholesterolemia, unspecified; E03.9 Hypothyroidism, unspecified; Z86.73 Personal history of transient ischemic attack (TIA), and cerebral infarction without residual deficits; Z91.040 Latex allergy status; Z88.8 Allergy status to other drugs, medicaments and biological substances; Z79.82 Long term (current) use of aspirin; Z79.899 Other long term (current) drug therapy; Z99.2 Dependence on renal dialysis; X58.XXXA Exposure to other specified factors, initial encounter
CPT/HCPCS: 36415; 73630; 80053; 82947; 85025; 90471; 90715; 99283; A9270

== ENCOUNTER 2024-12-10 14:36 | Emergency (ER) | payer BC ==
[2024-12-10 15:33] LABS: BASOPHILS PERCENT AUTO 0.1 % (0.0-1.0); EOSINOPHILS PERCENT AUTO 0.9 % (1.0-3.0); HEMATOCRIT 30.5 % (37.0-47.0); HEMOGLOBIN 9.4 g/dL (12.0-16.0); LYMPHOCYTES PERCENT AUTO 3.5 % (20.5-50.1); MEAN CORPUSCULAR HEMOGLOBIN 32.2 pg (27.0-34.0); MEAN CORPUSCULAR HGB CONC 30.8 g/dL (33.0-35.0); MEAN CORPUSCULAR VOLUME 104.5 fL (80-100); MONOCYTES PERCENT AUTO 4.5 % (2-8); PLATELET COUNT,PLT 148 10^3/uL (150-450); RED BLOOD CELL COUNT 2.92 10^6/uL (4.2-5.4); WHITE BLOOD CELL COUNT,WBC 10.1 10^3/uL (5.0-10.0)
[2024-12-10 15:54] LABS: ALBUMIN 3.1 g/dL (3.4-5.0); ANION GAP 10.2 mEq/L (7-13); BILIRUBIN TOTAL 0.6 mg/dL (0.2-1.0); CALCIUM 8.3 mg/dL (8.5-10.1); CREATININE 4.03 mg/dL (0.55-1.02); EST CRCL DRUG DOSING (CG) 12.03 mL/min; POTASSIUM,K 4.2 mmol/L (3.5-5.1); PROTEIN TOTAL,TP 7.8 g/dL (6.4-8.2)
[2024-12-10] MEDS: Lidocaine 5% 700 MG Patch TOP ONE (15:58)
[2024-12-10] MEDS: Acetaminophen 325 MG Tab PO ONE (15:59)
[2024-12-10 16:00] LABS: A/G RATIO 0.66
== END 2024-12-10 16:45 | disposition home or self-care (01) ==
LOC: DL.ED 14:36
DX: M54.50 Low back pain, unspecified (principal); I12.9 Hypertensive chronic kidney disease with stage 1 through stage 4 chronic kidney disease, or unspecified chronic kidney disease; N18.9 Chronic kidney disease, unspecified; E11.22 Type 2 diabetes mellitus with diabetic chronic kidney disease; Z99.2 Dependence on renal dialysis; E78.00 Pure hypercholesterolemia, unspecified; E03.9 Hypothyroidism, unspecified; Z86.73 Personal history of transient ischemic attack (TIA), and cerebral infarction without residual deficits; Z91.040 Latex allergy status; Z88.8 Allergy status to other drugs, medicaments and biological substances; Z79.82 Long term (current) use of aspirin; Z79.899 Other long term (current) drug therapy
CPT/HCPCS: 36415; 71045; 80053; 85025; 87428; 99285; A9270

== ENCOUNTER 2025-02-18 15:31 | Emergency (ER) | payer MEDICAID ==
[2025-02-18 16:18] LABS: BASOPHILS PERCENT AUTO 0.3 % (0.0-1.0); EOSINOPHILS PERCENT AUTO 2.4 % (1.0-3.0); HEMATOCRIT 36.1 % (37.0-47.0); HEMOGLOBIN 11.3 g/dL (12.0-16.0); LYMPHOCYTES PERCENT AUTO 12.3 % (20.5-50.1); MEAN CORPUSCULAR HEMOGLOBIN 30.9 pg (27.0-34.0); MEAN CORPUSCULAR HGB CONC 31.3 g/dL (33.0-35.0); MEAN CORPUSCULAR VOLUME 98.6 fL (80-100); MONOCYTES PERCENT AUTO 8.2 % (2-8); NEUTROPHILS PERCENT AUTO 76.8 % (42.2-75.2); PLATELET COUNT,PLT 171 10^3/uL (150-450); RED BLOOD CELL COUNT 3.66 10^6/uL (4.2-5.4); WHITE BLOOD CELL COUNT,WBC 6.6 10^3/uL (5.0-10.0)
[2025-02-18 16:58] LABS: ALBUMIN 3.1 g/dL (3.4-5.0); ANION GAP 10.9 mEq/L (7-13); BUN/CREATININE RATIO 4.4 (No establ ref range); C-REACTIVE PROTEIN 0.79 ng/dL (<=0.50); CALCIUM 9.5 mg/dL (8.5-10.1); CREATININE 3.44 mg/dL (0.55-1.02); EST CRCL DRUG DOSING (CG) 14.1 mL/min; MAGNESIUM 2.2 mg/dL (1.8-2.4); POTASSIUM,K 3.9 mmol/L (3.5-5.1)
[2025-02-18 17:25] LABS: A/G RATIO 0.53; BILIRUBIN TOTAL 0.8 mg/dL (0.2-1.0)
[2025-02-18 17:28] LABS: LACTIC ACID 0.5 mmol/L (0.4-2.0)
[2025-02-18] MEDS: Piperacillin/Tazobactam 4.5 GM in Sodium Chloride 0.9% 100 ML IV ONE (17:58)
[2025-02-18] MEDS: VANCOmycin 1.25 GM in Sodium Chloride 0.9% 250 ML IV ONE (18:21)
== END 2025-02-18 19:32 ==
LOC: DL.ED 15:31
DX: M86.172 Other acute osteomyelitis, left ankle and foot (principal); I10 Essential (primary) hypertension; E78.00 Pure hypercholesterolemia, unspecified; E11.9 Type 2 diabetes mellitus without complications; E03.9 Hypothyroidism, unspecified; Z79.899 Other long term (current) drug therapy; Z79.82 Long term (current) use of aspirin; Z91.040 Latex allergy status; Z88.8 Allergy status to other drugs, medicaments and biological substances
CPT/HCPCS: 36415; 73620; 80053; 83605; 83735; 85025; 86140; 87040; 96365; 96367; 99284; 99285; J2543; J3371; J7050

== ENCOUNTER 2025-05-06 15:10 | Emergency (ER) | payer MEDICAID ==
[2025-05-06 16:49] LABS: BASOPHILS PERCENT AUTO 0.6 % (0.0-1.0); EOSINOPHILS PERCENT AUTO 4.8 % (1.0-3.0); LYMPHOCYTES PERCENT AUTO 15.5 % (20.5-50.1); MONOCYTES PERCENT AUTO 13.0 % (2-8); NEUTROPHILS PERCENT AUTO 66.1 % (42.2-75.2); PLATELET COUNT,PLT 180 10^3/uL (150-450); RED BLOOD CELL COUNT 4.08 10^6/uL (4.2-5.4); WHITE BLOOD CELL COUNT,WBC 5.2 10^3/uL (5.0-10.0)
[2025-05-06 17:17] LABS: A/G RATIO 0.7; ALANINE AMINOTRANSFERASE,ALT 12.0 U/L (14-59); ASPARTATE AMNIOTRANSFERASE,AST 19.0 U/L (15-37); BILIRUBIN TOTAL 0.5 mg/dL (0.2-1.0); BLOOD UREA NITROGEN,BUN 23.0 mg/dL (7-18); CARBON DIOXIDE,CO2 36.0 mmol/L (21-32); CREATININE 3.56 mg/dL (0.55-1.02); EST CRCL DRUG DOSING (CG) 13.46 mL/min; GLUCOSE RANDOM 151.0 mg/dL (70-99); POTASSIUM,K 4.1 mmol/L (3.5-5.1); PROTEIN TOTAL,TP 8.6 g/dL (6.4-8.2)
[2025-05-06 17:25] LABS: CHLORIDE,CL 94.0 mmol/L (98-107); SODIUM,NA 132.0 mmol/L (136-145)
[2025-05-06 17:27] LABS: ESTIMATED GFR 14.0 mL/min (>=60)
== END 2025-05-06 18:16 ==
LOC: DL.ED 15:10
DX: M86.172 Other acute osteomyelitis, left ankle and foot (principal); I12.0 Hypertensive chronic kidney disease with stage 5 chronic kidney disease or end stage renal disease; N18.6 End stage renal disease; Z99.2 Dependence on renal dialysis; E78.00 Pure hypercholesterolemia, unspecified; Z83.72 Family history of familial adenomatous polyposis; E11.9 Type 2 diabetes mellitus without complications; E03.9 Hypothyroidism, unspecified; Z91.040 Latex allergy status; Z88.1 Allergy status to other antibiotic agents; Z79.82 Long term (current) use of aspirin; Z79.899 Other long term (current) drug therapy; Z86.73 Personal history of transient ischemic attack (TIA), and cerebral infarction without residual deficits
CPT/HCPCS: 36415; 73660-T1; 80053; 85025; 86140; 99285

== ENCOUNTER 2025-06-27 18:08 | Emergency (ER) | payer MEDICAID | END 2025-06-27 18:31 | disposition left against medical advice (07) | LOC: DL.ED 18:08 | DX: Z53.21 Procedure and treatment not carried out due to patient leaving prior to being seen by health care provider (principal) ==